=== PATIENT | male | born 1980 | race Caucasian/White ===

== ENCOUNTER 2016-08-01 21:49 | Emergency (ER) | payer OTHER | END 2016-08-02 02:46 | disposition home or self-care (01) | LOC: ER 21:49 | DX: R07.89 Other chest pain (principal); R06.02 Shortness of breath; I10 Essential (primary) hypertension; E11.9 Type 2 diabetes mellitus without complications; Z79.82 Long term (current) use of aspirin; Z79.899 Other long term (current) drug therapy; Z88.0 Allergy status to penicillin; Z88.1 Allergy status to other antibiotic agents; Z88.6 Allergy status to analgesic agent; Z90.49 Acquired absence of other specified parts of digestive tract | CPT/HCPCS: 36415; 96374; 96375; 96376; Q9967 ==

== ENCOUNTER 2016-08-05 21:13 | Emergency (ER) | payer OTHER | END 2016-08-06 00:38 | disposition home or self-care (01) | LOC: ER 21:13 | DX: R07.89 Other chest pain (principal); I25.2 Old myocardial infarction; I48.91 Unspecified atrial fibrillation; E11.9 Type 2 diabetes mellitus without complications; I10 Essential (primary) hypertension; Z85.72 Personal history of non-Hodgkin lymphomas; Z87.891 Personal history of nicotine dependence; Z79.82 Long term (current) use of aspirin; Z79.84 Long term (current) use of oral hypoglycemic drugs; Z88.1 Allergy status to other antibiotic agents; Z88.0 Allergy status to penicillin; Z88.8 Allergy status to other drugs, medicaments and biological substances | CPT/HCPCS: 36415; 96374; 96375; Q9967 ==